=== PATIENT | female | born 1945 | race Two or more races ===

== ENCOUNTER 2017-12-29 07:35 | Day surgery (SDC) | payer MEDICARE, OTHER ==
[2017-12-29] MEDS ORDERED: SEVOFLURANE 250 ML BOTTLE IH ONE (07:36)
[2017-12-29] MEDS ORDERED: IV NORMAL SALINE 1000 ML BAG IV ONE (07:36)
[2017-12-29] MEDS ORDERED: PROPOFOL 200 MG/20 ML BOTTLE IV ONE (07:36)
[2017-12-29] MEDS ORDERED: DEXAMETHASONE SOD PHOSPHATE 10 MG INJ IV ONE (07:36)
[2017-12-29] MEDS ORDERED: ONDANSETRON 4 MG/2 ML VIAL IV ONE (07:36)
[2017-12-29] MEDS ORDERED: MORPHINE SULFATE PF 10 MG/10 ML AMPUL IV ONE (08:48)
[2017-12-29] MEDS ORDERED: BUPIVACAINE 0.25% 30 ML VIAL ONE (08:56)
[2017-12-29] MEDS ORDERED: FENTANYL CITRATE 100 MCG/2 ML AMPUL ONE ×2 (09:30→11:24)
[2017-12-29] MEDS ORDERED: MIDAZOLAM HCL 2 MG/2 ML VIAL ONE (09:30)
[2017-12-29] MEDS ORDERED: CLINDAMYCIN PHOSPHATE 600 MG/4 ML VIAL ONE (09:46)
== END 2017-12-29 12:48 | disposition home or self-care (01) ==
LOC: DS 07:35
PROVIDERS: ATTEND Orthopaedic Surgery
DX: M23.241 Derangement of anterior horn of lateral meniscus due to old tear or injury, right knee (principal); M23.203 Derangement of unspecified medial meniscus due to old tear or injury, right knee; M65.861 Other synovitis and tenosynovitis, right lower leg; M94.261 Chondromalacia, right knee
CPT/HCPCS: 29876; 29880; A4663; J1100; J2250; J2274; J2405; J3010 ×2; J3490 ×3; J7030; J7120